=== PATIENT | female | born 1950 | race Caucasian/White ===

== ENCOUNTER 2024-03-06 20:40 | Inpatient (IN) | payer MEDICARE, OTHER ==
[~2024-03-06] VITALS: Ht 162.6 cm; Wt 51.3 kg
[2024-03-06] MEDS ORDERED: ONDANSETRON HCL/PF 4 MG/2 ML VIAL ONE (21:27)
[2024-03-06] MEDS ORDERED: MORPHINE SULFATE INJ 4 MG/ML DISP.SYRIN ONE (21:28)
[2024-03-06] MEDS: ONDANSETRON HCL/PF 4 MG/2 ML VIAL IV ONE (21:30)
[2024-03-06] MEDS: MORPHINE SULFATE INJ 2 MG/ML DISP.SYRIN IV ONE (21:30)
[2024-03-06 22:05] LABS: BASOPHILS % (AUTO) 0.9 % (0.0-2.0); EOSINOPHILS # (AUTO) 0.1 K/uL (0.0-0.7); EOSINOPHILS % (AUTO) 1.4 % (0.0-6.0); HEMATOCRIT 27 % (33-45); LYMPHOCYTES # (AUTO) 1.1 K/uL (0.8-4.8); LYMPHOCYTES % (AUTO) 20.3 % (20.0-44.0); MEAN CORPUSCULAR HEMOGLOBIN 31 PG (26.0-33.0); MEAN CORPUSCULAR HGB CONC 33 g/dl (31.0-36.0); MEAN CORPUSCULAR VOLUME 94 fL (82-100); MONOCYTES # (AUTO) 0.6 K/uL (0.1-1.30); MONOCYTES % (AUTO) 12.2 % (2.0-12.0); NEUTROPHILS # (AUTO) 3.4 K/uL (1.8-8.9); NEUTROPHILS % (AUTO) 65.2 % (43.0-81.0); PLATELET COUNT (AUTO) 113 K/uL (150-450); RED BLOOD CELL COUNT(AUTO) 2.87 MIL/uL (4.0-5.2); RED CELL DISTRIBUTION WIDTH 18.6 % (11.5-15.0); WHITE BLOOD COUNT (AUTO) 5.3 K/uL (4.3-11.0)
[2024-03-06 22:07] LABS: APPEARANCE,URINE CLEAR (CLEAR); BILIRUBIN,URINE NEGATIVE (NEGATIVE); BLOOD, URINE NEGATIVE Ery/uL (NEGATIVE); COLOR,URINE YELLOW (YELLOW); KETONES,URINE NEGATIVE (NEGATIVE); LEUKOCYTE ESTERASE ,URINE NEGATIVE (NEGATIVE); NITRITE, URINE NEGATIVE (NEGATIVE); PROTEIN,URINE NEGATIVE (NEGATIVE); UGLUCOSE NEGATIVE (NEGATIVE); UROBILINOGEN,URINE 0.2 EU/dL (0.2)
[2024-03-06 22:13] LABS: CALCIUM, SERUM 8.3 mg/dL (8.5-10.1); CARBON DIOXIDE 25 mmol/L (21-32); CHLORIDE 105 mmol/L (98-107); GLUCOSE 130 mg/dL (74-106); POTASSIUM 5.1 mmol/L (3.5-5.1); SODIUM SERUM 136 mmol/L (136-145); UREA NITROGEN, BLOOD 42 mg/dL (7-18)
[2024-03-06 22:16] LABS: INR 1.18 (0.91-1.10); PARTIAL THROMBOPLASTIN TIME 27.9 SEC (24.3-34.3); PROTHROMBIN TIME 12.4 SECS (9.2-11.1)
[2024-03-06 22:19] LABS: ALANINE AMINOTRANSFERASE 87 U/L (12-78); ALBUMIN 1.9 g/dL (3.4-5.0); ALKALINE PHOSPHATASE 787 U/L (46-116); ASPARTATE AMINOTRANSFERASE 90 U/L (15-37); BILIRUBIN,DIRECT 0.7 mg/dL (0.0-0.2); BILIRUBIN,TOTAL 1.6 mg/dL (0.2-1.0); LIPASE 37 U/L (16-77); TOTAL PROTEIN, SERUM 6.5 g/dL (6.4-8.2)
[2024-03-06] MEDS ORDERED: CT SWABBABLE VALVE TRANS SET 1 EA INFUS.SET MC ONE (22:56)
[2024-03-06] MEDS ORDERED: IOHEXOL-350 100 ML VIAL IV ONE (22:56)
[2024-03-06] MEDS ORDERED: IV NS 0.9% 250 ML IV ONE (22:56)
[2024-03-07] MEDS ORDERED: hydrALAZINE HCL IV 20 MG VIAL IV PRN (01:30)
[2024-03-07] MEDS ORDERED: ONDANSETRON HCL/PF 4 MG/2 ML VIAL IVP PRN (01:30)
[2024-03-07] MEDS ORDERED: ACETAMINOPHEN 325 MG TABLET PO PRN (01:30)
[2024-03-07 02:25] VITALS: BP 154/94; TEMP 97.5; O2SAT 96
[2024-03-07] MEDS ORDERED: MULT-225 PO (04:04)
[2024-03-07] MEDS ORDERED: CHOL12502 PO (04:04)
[2024-03-07] MEDS ORDERED: BISA10SU61 RC (04:04)
[2024-03-07] MEDS ORDERED: AMIN30LI66 PO (04:04)
[2024-03-07] MEDS ORDERED: ASCO500T10 PO (04:04)
[2024-03-07] MEDS ORDERED: MIDO5TAB4 PO (04:04)
[2024-03-07] MEDS ORDERED: LACT10SO29 PO (04:04)
[2024-03-07] MEDS ORDERED: ZINC220T4 PO (04:04)
[2024-03-07] MEDS ORDERED: ACET325C7 PO (04:04)
[2024-03-07] MEDS ORDERED: TRAM100T34 PO (04:04)
[2024-03-07] MEDS ORDERED: TRAZ-182 PO (04:04)
[2024-03-07] MEDS ORDERED: MELA1TAB27 PO (04:04)
[2024-03-07] MEDS ORDERED: RIFA550T PO (04:04)
[2024-03-07] MEDS ORDERED: FURO-145 PO (04:04)
[2024-03-07] MEDS ORDERED: DOCU100C36 PO (04:04)
[2024-03-07 06:13] LABS: BASOPHILS # (AUTO) 0.1 K/uL (0.0-0.2); EOSINOPHILS # (AUTO) 0.1 K/uL (0.0-0.7); EOSINOPHILS % (AUTO) 1.6 % (0.0-6.0); HEMATOCRIT 27 % (33-45); HEMOGLOBIN 9.2 g/dL (11.5-14.8); LYMPHOCYTES # (AUTO) 1.1 K/uL (0.8-4.8); LYMPHOCYTES % (AUTO) 20.7 % (20.0-44.0); MEAN CORPUSCULAR HEMOGLOBIN 32 PG (26.0-33.0); MEAN CORPUSCULAR HGB CONC 34 g/dl (31.0-36.0); MEAN CORPUSCULAR VOLUME 93 fL (82-100); MONOCYTES # (AUTO) 0.6 K/uL (0.1-1.30); MONOCYTES % (AUTO) 11.7 % (2.0-12.0); NEUTROPHILS # (AUTO) 3.4 K/uL (1.8-8.9); PLATELET COUNT (AUTO) 100 K/uL (150-450); RED BLOOD CELL COUNT(AUTO) 2.89 MIL/uL (4.0-5.2); RED CELL DISTRIBUTION WIDTH 18.9 % (11.5-15.0); WHITE BLOOD COUNT (AUTO) 5.3 K/uL (4.3-11.0)
[2024-03-07 06:28] LABS: ALANINE AMINOTRANSFERASE 91 U/L (12-78); ALBUMIN 1.9 g/dL (3.4-5.0); ALKALINE PHOSPHATASE 777 U/L (46-116); ASPARTATE AMINOTRANSFERASE 97 U/L (15-37); BILIRUBIN,TOTAL 1.8 mg/dL (0.2-1.0); CARBON DIOXIDE 23 mmol/L (21-32); CHLORIDE 105 mmol/L (98-107); CREATININE 1.1 mg/dL (0.6-1.3); GLUCOSE 98 mg/dL (74-106); MAGNESIUM 2.4 mg/dL (1.8-2.4); PHOSPHORUS 4.7 mg/dL (2.5-4.9); POTASSIUM 4.7 mmol/L (3.5-5.1); SODIUM SERUM 136 mmol/L (136-145); TOTAL PROTEIN, SERUM 6.3 g/dL (6.4-8.2); UREA NITROGEN, BLOOD 41 mg/dL (7-18)
[2024-03-07 07:00] VITALS: BP 138/78; TEMP 97.7; O2SAT 96
[2024-03-07] MEDS ORDERED: ACET-868 PO (08:34)
[2024-03-07] MEDS ORDERED: MULT-213 PO (08:34)
[2024-03-07] MEDS ORDERED: NA P133E RC (08:34)
[2024-03-07] MEDS ORDERED: MELA3TAB41 PO (08:34)
[2024-03-07] MEDS ORDERED: MAGN400O6 PO (08:34)
[2024-03-07] MEDS: LACTULOSE 10 G/15 ML UDC (PYXIS) PO SCH (15:18)
[2024-03-07] MEDS: MIDODRINE HCL (5MG) 5 MG TABLET PO SCH (15:19)
[2024-03-07 16:00] VITALS: BP 114/50; TEMP 98.1; O2SAT 97
[2024-03-07] MEDS: ASCORBIC ACID 500 MG TABLET PO SCH (18:43)
[2024-03-07] MEDS: MULTIVIT W/MINERALS 1 TAB TABLET PO SCH (18:43)
[2024-03-07] MEDS: PROSOURCE / PROSTAT (PYXIS) 30 ML UDC PO SCH (18:43)
[2024-03-07 20:00] VITALS: BP 130/62; TEMP 98.1; O2SAT 98
[2024-03-07] MEDS: TRAZODONE 50 MG TABLET PO SCH (21:09)
[2024-03-07] MEDS: RIFAXIMIN 550 MG TABLET PO SCH (21:09)
[2024-03-07] MEDS ORDERED: Medication Not On Formulary EA (Melatonin 9 MG) PO SCH (22:00)
[2024-03-07 22:09] LABS: APPEARANCE,SPUN,BODY FLUID CLEAR (CLEAR)
[2024-03-07 22:10] LABS: TOTAL VOLUME,BODY FLUID 2100 mL; WBC, BODY FLUID 124 /cu. mm. (0-200)
[2024-03-07 22:35] LABS: MACROPHAGES, BODY FLUID 5; POLYNUCLEAR, BODY FLUID 5 % (0-25)
[2024-03-08 07:50] LABS: SERUM AMMONIA 92 umol/L (11-32)
[2024-03-08 07:56] LABS: BASOPHILS % (AUTO) 0.9 % (0.0-2.0); EOSINOPHILS # (AUTO) 0.1 K/uL (0.0-0.7); EOSINOPHILS % (AUTO) 2.1 % (0.0-6.0); HEMATOCRIT 25 % (33-45); HEMOGLOBIN 8.4 g/dL (11.5-14.8); MEAN CORPUSCULAR HEMOGLOBIN 32 PG (26.0-33.0); MEAN CORPUSCULAR HGB CONC 34 g/dl (31.0-36.0); MEAN CORPUSCULAR VOLUME 93 fL (82-100); MONOCYTES # (AUTO) 0.5 K/uL (0.1-1.30); MONOCYTES % (AUTO) 14.1 % (2.0-12.0); NEUTROPHILS # (AUTO) 2.1 K/uL (1.8-8.9); NEUTROPHILS % (AUTO) 56.9 % (43.0-81.0); PLATELET COUNT (AUTO) 82 K/uL (150-450); RED BLOOD CELL COUNT(AUTO) 2.67 MIL/uL (4.0-5.2); RED CELL DISTRIBUTION WIDTH 18.8 % (11.5-15.0); WHITE BLOOD COUNT (AUTO) 3.7 K/uL (4.3-11.0)
[2024-03-08 08:00] VITALS: BP 153/88; TEMP 99.2; O2SAT 98
[2024-03-08 08:00] LABS: ALANINE AMINOTRANSFERASE 79 U/L (12-78); ALBUMIN 1.6 g/dL (3.4-5.0); ALKALINE PHOSPHATASE 710 U/L (46-116); ASPARTATE AMINOTRANSFERASE 96 U/L (15-37); BILIRUBIN,TOTAL 1.6 mg/dL (0.2-1.0); CALCIUM, SERUM 7.8 mg/dL (8.5-10.1); CARBON DIOXIDE 24 mmol/L (21-32); CHLORIDE 104 mmol/L (98-107); GLUCOSE 118 mg/dL (74-106); POTASSIUM 4.8 mmol/L (3.5-5.1); SODIUM SERUM 134 mmol/L (136-145); TOTAL PROTEIN, SERUM 5.6 g/dL (6.4-8.2); UREA NITROGEN, BLOOD 39 mg/dL (7-18)
[2024-03-08 08:01] VITALS: BP 116/58; TEMP 98.2; O2SAT 96
[2024-03-08] MEDS: DOCUSATE SODIUM 100 MG CAPSULE PO SCH (09:05)
[2024-03-08] MEDS: FUROSEMIDE 40 MG/4 ML VIAL IV SCH (09:06)
[2024-03-08 09:47] LABS: BAND % (MANUAL) 1 % (0.0-5.0); EOSINOPHILS % (MANUAL) 2 % (0-4); LYMPHOCYTES % (MANUAL) 27 % (16-48); MONOCYTES % (MANUAL) 13 % (0-11.0); MYELOCYTES % 1 % (0-0); NEUTROPHILS % (MANUAL) 55 (42-76); PLATELET ESTIMATE DECREASED; PROMYELOCYTES % 1 % (0-0)
[2024-03-08 09:48] LABS: ANISOCYTOSIS 1+
[2024-03-08] MEDS: GLUCERNA SHAKE 237 ML CAN PO SCH (14:18)
[2024-03-08 16:00] VITALS: BP 119/58; TEMP 98.1; O2SAT 97
[2024-03-08] MEDS ORDERED: LACTULOSE 10 G/15 ML UDC (PYXIS) PO SCH (17:00)
[2024-03-08] MEDS: POLYETHYLENE GLYCOL 3350 17 GM POWD.PACK PO PRN (19:31)
[2024-03-08] MEDS: MORPHINE SULFATE INJ 2 MG/ML DISP.SYRIN IV PRN (19:32)
[2024-03-08 20:00] VITALS: BP 129/63; TEMP 98.1; O2SAT 95
[2024-03-09 07:00] VITALS: BP 124/69; TEMP 98.7; O2SAT 97
[2024-03-09 07:42] LABS: BASOPHILS % (AUTO) 0.8 % (0.0-2.0); EOSINOPHILS # (AUTO) 0.1 K/uL (0.0-0.7); EOSINOPHILS % (AUTO) 2.3 % (0.0-6.0); HEMATOCRIT 24 % (33-45); HEMOGLOBIN 8.4 g/dL (11.5-14.8); LYMPHOCYTES # (AUTO) 1.1 K/uL (0.8-4.8); LYMPHOCYTES % (AUTO) 24.7 % (20.0-44.0); MEAN CORPUSCULAR HEMOGLOBIN 32 PG (26.0-33.0); MEAN CORPUSCULAR HGB CONC 35 g/dl (31.0-36.0); MEAN CORPUSCULAR VOLUME 92 fL (82-100); MONOCYTES # (AUTO) 0.5 K/uL (0.1-1.30); MONOCYTES % (AUTO) 11.9 % (2.0-12.0); NEUTROPHILS # (AUTO) 2.7 K/uL (1.8-8.9); NEUTROPHILS % (AUTO) 60.3 % (43.0-81.0); PLATELET COUNT (AUTO) 83 K/uL (150-450); RED BLOOD CELL COUNT(AUTO) 2.62 MIL/uL (4.0-5.2); RED CELL DISTRIBUTION WIDTH 18.6 % (11.5-15.0); WHITE BLOOD COUNT (AUTO) 4.5 K/uL (4.3-11.0)
[2024-03-09 07:57] LABS: CALCIUM, SERUM 8.2 mg/dL (8.5-10.1); CARBON DIOXIDE 28 mmol/L (21-32); CHLORIDE 101 mmol/L (98-107); CREATININE 1.1 mg/dL (0.6-1.3); GLUCOSE 121 mg/dL (74-106); POTASSIUM 4.9 mmol/L (3.5-5.1); SODIUM SERUM 132 mmol/L (136-145); UREA NITROGEN, BLOOD 40 mg/dL (7-18)
[2024-03-09 08:00] LABS: C-REACTIVE PROTEIN 3.85 mg/dL (0.0-0.30)
[2024-03-09 08:02] LABS: IRON, SERUM 39 ug/dl (50-175); TOTAL IRON BINDING CAPACITY 119 ug/dl (250-450)
[2024-03-09 08:12] LABS: FERRITIN 109 ng/mL (8-388)
[2024-03-09] MEDS: ERGOCALCIFEROL (VITAMIN D 2) 50,000 UNIT CAPSULE PO SCH (08:24)
[2024-03-09 09:38] LABS: ANISOCYTOSIS 1+; EOSINOPHILS % (MANUAL) 1 % (0-4); LYMPHOCYTES % (MANUAL) 25 % (16-48); MONOCYTES % (MANUAL) 11 % (0-11.0); NEUTROPHILS % (MANUAL) 63 (42-76); PLATELET ESTIMATE DECREASED
[2024-03-09 11:14] LABS: RHEUMATOID FACTOR SCREEN NEGATIVE (NEGATIVE)
[2024-03-09] MEDS: SOD FERRIC GLUC 125 MG in IV NS 0.9% 100 ML IV SCH (13:58)
[2024-03-09] MEDS: BISACODYL SUPP (10 MG) 10 MG/SUPP.RECT SUPP.RECT RC ONE (13:58)
[2024-03-09 16:00] VITALS: BP 137/68; TEMP 98.6; O2SAT 100
[2024-03-09 20:00] VITALS: BP 138/68; TEMP 98.4; O2SAT 99
[2024-03-10 08:00] VITALS: BP_SYST 133; BP_SYST 136; BP_DIAS 60; BP_DIAS 65; TEMP 98.4; TEMP 98.6; O2SAT 100; O2SAT 99
[2024-03-10 08:15] VITALS: O2SAT 94
[2024-03-10] MEDS: THERAHONEY GEL 1.5 OZ TUBE TP SCH (11:30)
[2024-03-10 14:07] LABS: *ANA ANTI-CENTROMERE B AB <0.2 AI (0.0-0.9); *ANA ANTI-DNA(DS) AB, QN 25 IU/mL (0-9); *ANA ANTI-JO-1 <0.2 AI (0.0-0.9); *ANA ANTICHROMATIN ANTIBODY <0.2 AI (0.0-0.9); *ANA RNP ANTIBODIES <0.2 AI (0.0-0.9); *ANA SJOGREN'S ANTI-SS-A <0.2 AI (0.0-0.9); *ANA SJOGREN'S ANTI-SS-B 0.2 AI (0.0-0.9); *ANAANTI-SCLERODERMA-70 AB <0.2 AI (0.0-0.9); *ANASMITH AB <0.2 AI (0.0-0.9)
[2024-03-10 16:00] VITALS: BP 114/62; TEMP 98.8; O2SAT 100
[2024-03-10 20:00] VITALS: BP 136/65; TEMP 98.6; O2SAT 100
[2024-03-11 01:10] LABS: FOLIC ACID 8.8 ng/mL (>3.0); HEPATITIS B SURFACE AB Reactive (.); IMMUNOGLOBULIN A, SERUM 687 mg/dL (64-422); IMMUNOGLOBULIN G, SERUM 1873 mg/dL (586-1602); IMMUNOGLOBULIN M, SERUM 169 mg/dL (26-217)
[2024-03-11 06:34] LABS: BASOPHILS % (AUTO) 0.8 % (0.0-2.0); EOSINOPHILS # (AUTO) 0.1 K/uL (0.0-0.7); EOSINOPHILS % (AUTO) 1.9 % (0.0-6.0); HEMATOCRIT 23 % (33-45); LYMPHOCYTES % (AUTO) 19.6 % (20.0-44.0); MEAN CORPUSCULAR HEMOGLOBIN 32 PG (26.0-33.0); MEAN CORPUSCULAR HGB CONC 34 g/dl (31.0-36.0); MEAN CORPUSCULAR VOLUME 93 fL (82-100); MONOCYTES # (AUTO) 0.6 K/uL (0.1-1.30); MONOCYTES % (AUTO) 11.7 % (2.0-12.0); NEUTROPHILS # (AUTO) 3.4 K/uL (1.8-8.9); PLATELET COUNT (AUTO) 77 K/uL (150-450); RED BLOOD CELL COUNT(AUTO) 2.52 MIL/uL (4.0-5.2); RED CELL DISTRIBUTION WIDTH 18.7 % (11.5-15.0); WHITE BLOOD COUNT (AUTO) 5.1 K/uL (4.3-11.0)
[2024-03-11 06:47] LABS: CALCIUM, SERUM 7.9 mg/dL (8.5-10.1); CARBON DIOXIDE 26 mmol/L (21-32); CHLORIDE 101 mmol/L (98-107); CREATININE 1.1 mg/dL (0.6-1.3); GLUCOSE 124 mg/dL (74-106); POTASSIUM 4.9 mmol/L (3.5-5.1); SODIUM SERUM 132 mmol/L (136-145); UREA NITROGEN, BLOOD 37 mg/dL (7-18)
[2024-03-11 07:30] VITALS: BP 117/64; TEMP 98.2; O2SAT 97
[2024-03-11 09:18] LABS: BASOPHILS % (MANUAL) 0 % (0.0-2.0); EOSINOPHILS % (MANUAL) 3 % (0-4); LYMPHOCYTES % (MANUAL) 17 % (16-48); MONOCYTES % (MANUAL) 10 % (0-11.0); NEUTROPHILS % (MANUAL) 70 (42-76); PLATELET ESTIMATE DECREASED
[2024-03-11 09:19] LABS: ANISOCYTOSIS 1+
[2024-03-11 10:07] LABS: FREE KAPPA LT CHAINS SERUM 114.1 mg/L (3.3-19.4); FREE LAMBDA LT CHAIN SERUM 96.5 mg/L (5.7-26.3); KAPPA/LAMBDA RATIO SERUM 1.18 (0.26-1.65)
[2024-03-11] MEDS: BISACODYL SUPP (10 MG) 10 MG/SUPP.RECT SUPP.RECT RC PRN (14:38)
[2024-03-11] MEDS ORDERED: SPIR50TA PO (15:15)
[2024-03-11] MEDS ORDERED: FURO-145 PO (15:15)
[2024-03-11 16:00] VITALS: BP 125/62; TEMP 98.6; O2SAT 99
[2024-03-11 17:10] VITALS: BP 125/62
[2024-03-12 05:11] LABS: *SPE A/G RATIO 0.6 (0.7-1.7); *SPE ALBUMIN 2.2 g/dL (2.9-4.4); *SPE ALPHA-1-GLOBULIN 0.3 g/dL (0.0-0.4); *SPE ALPHA-2-GLOBULIN 0.3 g/dL (0.4-1.0); *SPE BETA GLOBULIN 0.8 g/dL (0.7-1.3); *SPE GLOBULIN, TOTAL 3.5 g/dL (2.2-3.9); *SPE M-SPIKE Not Observed g/dL (Not Observed); *SPE PROTEIN TOTAL 5.7 g/dL (6.0-8.5); *SPEGAMMA GLOBULIN 2.1 g/dL (0.4-1.8)
== END 2024-03-11 19:06 | DRG 374 ==
LOC: ER 20:57 → TELE 03-07 01:18 → MED 03-07 02:05
PROVIDERS: ADMIT Nurse Practitioner Acute Care; ATTEND Nurse Practitioner Family
PROC: 0W993ZZ Drainage of Right Pleural Cavity, Percutaneous Approach (ICD-10-PCS; principal; 2024-03-07)
PROC: 0W9G3ZZ Drainage of Peritoneal Cavity, Percutaneous Approach (ICD-10-PCS; 2024-03-10)
DX: C18.7 Malignant neoplasm of sigmoid colon (principal); E43 Unspecified severe protein-calorie malnutrition; R18.8 Other ascites; C79.51 Secondary malignant neoplasm of bone; Z68.1 Body mass index [BMI] 19.9 or less, adult; J91.0 Malignant pleural effusion; J98.19 Other pulmonary collapse; K74.60 Unspecified cirrhosis of liver; E11.9 Type 2 diabetes mellitus without complications; Z85.038 Personal history of other malignant neoplasm of large intestine; I10 Essential (primary) hypertension; D64.9 Anemia, unspecified; D69.6 Thrombocytopenia, unspecified; E88.09 Other disorders of plasma-protein metabolism, not elsewhere classified; F41.9 Anxiety disorder, unspecified; K59.00 Constipation, unspecified; R74.01 Elevation of levels of liver transaminase levels; D72.819 Decreased white blood cell count, unspecified; L89.150 Pressure ulcer of sacral region, unstageable; E80.6 Other disorders of bilirubin metabolism
CPT/HCPCS: 36415; 49083; 71045-TC; 76705-TC; 80048-TC; 80053-TC; 80076-TC; 82140-TC; 82378; 82607-TC; 82728-TC; 82784; 83540-TC; 83690-TC; 83735-TC; 84100-TC; 84155; 84165; 84443-TC; 84484-TC; 85025-TC; 85730-TC; 86140-TC; 86225; 86235; 86334; 86431-TC; 86706; 86803; 87081-TC; 87102-TC; 87340; 88108-TC; 88305-TC; 88312-TC; 88341; 88342; 89051-TC; 94799-TC; 97110-TC; 97530-TC; A4223; G0378; J1940; J2270; J2405; J2916; J7030; J7040; J7050; Q9967